=== PATIENT | male | born 1970 | race Hispanic/Latino ===

== ENCOUNTER 2018-12-28 10:42 | Emergency (ER) | payer SELFPAY ==
[2018-12-28] MEDS ORDERED: Sodium Chloride 0.9% 1,000 ML ONE ×2 (11:25→11:46)
[2018-12-28] MEDS ORDERED: Sodium Chloride 0.9% 500 ML ONE (11:46)
[2018-12-28 11:49] LABS: #Eosinphils 0.6 thou/uL (0.0-0.7); #Lymphocytes 1.1 thou/uL (1.20-3.40); #Monocytes 0.4 thou/uL (0.11-0.59); #Neutrophils 1.2 thou/uL (1.40-6.50); %Eosinophils 17.2 % (0.0-10.0); %Lymphocytes 32.5 % (21.0-51.0); %Neutrophils 36.2 % (42.0-75.0); Hemoglobin 13.3 g/dL (14.0-18.0); Mean Corpuscular HGB CONC 32.4 g/dL (32.0-36.0); Mean Corpuscular Hemoglobin 29.7 pg (27.0-31.0); Mean Corpuscular Volume 91.7 fL (78.0-98.0); Mean Platelet Volume 8.7 fL (7.4-10.4); Platelet Count 136 thou/uL (130-400); RBC Distribution Width 14.2 % (11.5-14.5); Red Blood Cell (RBC) Count 4.46 mill/uL (4.70-6.10); White Blood Cell (WBC) Count 3.4 thou/uL (4.8-10.8)
[2018-12-28 12:03] LABS: ALT (SGPT) 37 U/L (8-55); AST (SGOT) 37 U/L (5-34); Albumin 3.8 g/dL (3.5-5.0); Alkaline Phosphatase 108 U/L (40-150); Anion Gap 15 mmol/L (10-20); BUN (Urea Nitrogen) 26 mg/dL (8.9-20.6); Bilirubin, Total 0.4 mg/dL (0.2-1.2); Calc. Creatinine Clearance 0 mL/min (70-130); Calcium 8.5 mg/dL (7.8-10.44); Carbon Dioxide 18 mmol/L (22-29); Chloride 109 mmol/L (98-107); Estimated GFR-MDRD 51; Globulin 3.9 g/dL (2.4-3.5); Glucose 101 mg/dL (70-105); Potassium 4.1 mmol/L (3.5-5.1); Protein, Total 7.7 g/dL (6.0-8.3); Sodium 138 mmol/L (136-145)
[2018-12-28 12:06] LABS: Bilirubin Negative (Negative); Blood, Urine Trace (Negative); Clarity Clear (Clear); Glucose, Urine (Dipstick) Negative (Negative); Leukocyte Negative (Negative); Nitrite Negative (Negative); Protein, Urine (Dipstick) 30 mg/dL (Neg-Trace); Urobilinogen 0.2 mg/dL (0.2-1.0); pH, Urine 5.5 (5.0-9.0)
[2018-12-28 12:22] LABS: RBC/HPF 0-3 HPF (0-3); WBC/HPF None Seen HPF (0-3)
[2018-12-28 12:23] LABS: Bacteria/HPF Rare-Few HPF (None Seen); Other Microscopic Description NO; Squamous Epithelial None Seen HPF (0-3)
[2018-12-28 12:31] LABS: Amphetamine Not Detected (NotDetected); Barbiturates Screen Not Detected (NotDetected); Benzodiazepine Screen Not Detected (NotDetected); Cocaine Metabolite Screen Not Detected (NotDetected); Medtox Control Line Valid? VALID (VALID); Methadone Not Detected (NotDetected); Methamphetamine Not Detected (NotDetected); Opiate Screen Not Detected (NotDetected); Oxycodone Screen Not Detected (NotDetected); Phencyclidine (PCP) Not Detected (NotDetected); THC/Cannabinoid Screen Not Detected (NotDetected); Tricyclic Screen Not Detected (NotDetected)
== END 2018-12-28 13:05 | disposition home or self-care (01) ==
LOC: NAV ERS 10:42
DX: E86.0 Dehydration (principal); N28.9 Disorder of kidney and ureter, unspecified; Z87.891 Personal history of nicotine dependence
CPT/HCPCS: 80053; 80306; 81003; 81015; 83605; 84484; 85025; 93005; J7050

== ENCOUNTER 2019-03-02 13:02 | Emergency (ER) | payer SELFPAY ==
[2019-03-02] MEDS ORDERED: Sodium Chloride 0.9% 1,000 ML ONE (13:27)
[2019-03-02 13:49] LABS: ALT (SGPT) 34 U/L (8-55); AST (SGOT) 39 U/L (5-34); Albumin 3.9 g/dL (3.5-5.0); Alkaline Phosphatase 86 U/L (40-150); Anion Gap 14 mmol/L (10-20); BUN (Urea Nitrogen) 17 mg/dL (8.9-20.6); Bilirubin, Total 0.6 mg/dL (0.2-1.2); Calc. Creatinine Clearance 0 mL/min (70-130); Calcium 8.9 mg/dL (7.8-10.44); Carbon Dioxide 22 mmol/L (22-29); Chloride 104 mmol/L (98-107); Estimated GFR-MDRD 52; Globulin 3.9 g/dL (2.4-3.5); Glucose 152 mg/dL (70-105); Potassium 4.4 mmol/L (3.5-5.1); Protein, Total 7.8 g/dL (6.0-8.3); Sodium 136 mmol/L (136-145)
--- NOTE | 2019-03-02 13:50 | CT ---
CT BRAIN NONCONTRAST: HISTORY: 48-year-old male with dizziness. FINDINGS: There is no midline shift or any other mass effect. There is no evidence of acute intracranial hemor rhage, large cortical infarct, obstructive hydrocephalus, or extraaxial fluid collection. The calvar ium is intact. IMPRESSION: No acute intracranial findings. jn [] POS: [facility]
[2019-03-02 13:56] LABS: #Eosinphils 0.4 thou/uL (0.0-0.7); #Monocytes 0.4 thou/uL (0.11-0.59); #Neutrophils 2.3 thou/uL (1.40-6.50); %Basophils 0.6 % (0.0-1.0); %Eosinophils 11.1 % (0.0-10.0); %Lymphocytes 24.3 % (21.0-51.0); %Monocytes 8.7 % (0.0-10.0); %Neutrophils 55.3 % (42.0-75.0); Hemoglobin 12.5 g/dL (14.0-18.0); Mean Corpuscular HGB CONC 32.1 g/dL (32.0-36.0); Mean Corpuscular Hemoglobin 29.7 pg (27.0-31.0); Mean Corpuscular Volume 92.5 fL (78.0-98.0); Mean Platelet Volume 8.2 fL (7.4-10.4); Platelet Count 174 thou/uL (130-400); RBC Distribution Width 13.1 % (11.5-14.5); Red Blood Cell (RBC) Count 4.19 mill/uL (4.70-6.10); White Blood Cell (WBC) Count 4.1 thou/uL (4.8-10.8)
[2019-03-02 14:10] LABS: Platelet Morphology Comment Appears Adequate; RBC Morphology Normal
== END 2019-03-02 14:58 | disposition home or self-care (01) ==
LOC: NAV ERS 13:02
DX: E86.0 Dehydration (principal); R42 Dizziness and giddiness; N28.9 Disorder of kidney and ureter, unspecified; Z87.891 Personal history of nicotine dependence
CPT/HCPCS: 70450; 80053; 84484; 85025; 93005; 96360; J7050

== ENCOUNTER 2019-03-15 12:37 | Emergency (ER) | payer SELFPAY | END 2019-03-15 13:13 | disposition home or self-care (01) | LOC: NAV ERS 12:37 | DX: M25.562 Pain in left knee (principal); B20 Human immunodeficiency virus [HIV] disease; Z87.891 Personal history of nicotine dependence | CPT/HCPCS: 99281 ==

== ENCOUNTER 2019-07-09 10:33 | Emergency (ER) | payer SELFPAY ==
--- NOTE | 2019-07-09 11:03 | RAD ---
Left thumb 3 views. HISTORY: Left thumb injury COMPARISON: None. FINDINGS: There is a tuft fracture of the distal phalanx. No other abnormalities. IMPRESSION: Tuft fracture.
== END 2019-07-09 11:35 | disposition home or self-care (01) ==
LOC: NAV ERS 10:33
DX: S62.637A Displaced fracture of distal phalanx of left little finger, initial encounter for closed fracture (principal); B20 Human immunodeficiency virus [HIV] disease; M10.9 Gout, unspecified; Z87.891 Personal history of nicotine dependence; Z79.899 Other long term (current) drug therapy; W22.03XA Walked into furniture, initial encounter

== ENCOUNTER 2019-08-20 13:34 | Emergency (ER) | payer SELFPAY ==
--- NOTE | 2019-08-20 14:05 | RAD ---
EXAM: XR Knee Rt 4 View STANDARD PROVIDED CLINICAL HISTORY: Pain FINDINGS: There is no evidence for fracture or other acute osseous abnormality. Alignment appears anatomic. Fatemeh nt spaces appear preserved. Sequela of prior tibial tubercle apophysitis is noted. Postoperative changes noted involving the inferior pole of the patella. IMPRESSION: No evidence for an acute osseous abnormality. If there is persistent clinical concern, conservative m anagement and follow-up imaging advised.
== END 2019-08-20 14:43 | disposition home or self-care (01) ==
LOC: NAV ERS 13:34
DX: S83.421A Sprain of lateral collateral ligament of right knee, initial encounter (principal); M93.961 Osteochondropathy, unspecified, right lower leg; B20 Human immunodeficiency virus [HIV] disease; M10.9 Gout, unspecified; Z79.899 Other long term (current) drug therapy; X58.XXXA Exposure to other specified factors, initial encounter

== ENCOUNTER 2019-10-12 11:23 | Emergency (ER) | payer SELFPAY | END 2019-10-12 11:52 | disposition home or self-care (01) | LOC: NAV ERS 11:23 | DX: M79.671 Pain in right foot (principal); M10.9 Gout, unspecified; B20 Human immunodeficiency virus [HIV] disease; Z79.899 Other long term (current) drug therapy | CPT/HCPCS: 99281 ==

== ENCOUNTER 2019-11-08 16:49 | Emergency (ER) | payer SELFPAY | END 2019-11-08 17:30 | disposition home or self-care (01) | LOC: NAV ERS 16:49 | DX: M25.562 Pain in left knee (principal); B20 Human immunodeficiency virus [HIV] disease; Z87.891 Personal history of nicotine dependence; Z79.899 Other long term (current) drug therapy | CPT/HCPCS: 99283 ==

== ENCOUNTER 2020-02-26 07:12 | Emergency (ER) | payer SELFPAY ==
[2020-02-26 07:56] LABS: Bilirubin Negative (Negative); Blood, Urine Large (Negative); Clarity Clear (Clear); Glucose, Urine (Dipstick) Negative (Negative); Ketone, Urine Negative (Negative); Leukocyte Negative (Negative); Nitrite Negative (Negative); Protein, Urine (Dipstick) > or equal to 300 mg/dL (Neg-Trace); Urobilinogen 0.2 mg/dL (Less than 2)
[2020-02-26 08:04] LABS: Bacteria/HPF Rare-Few HPF (None Seen); Squamous Epithelial None Seen HPF (0-3)
[2020-02-26] MEDS ORDERED: Ketorolac Tromethamine 30 MG/ML VIAL ONE (08:17)
[2020-02-26] MEDS ORDERED: Sodium Chloride 0.9% 1,000 ML ONE (08:17)
[2020-02-26 08:22] LABS: #Basophils 0.1 thou/uL (0.0-0.2); #Eosinphils 0.1 thou/uL (0.0-0.7); #Lymphocytes 1.2 thou/uL (1.20-3.40); #Monocytes 0.8 thou/uL (0.11-0.59); #Neutrophils 10.7 thou/uL (1.40-6.50); %Basophils 0.6 % (0.0-1.0); %Eosinophils 0.7 % (0.0-10.0); %Lymphocytes 9.3 % (21.0-51.0); %Monocytes 6.2 % (0.0-10.0); %Neutrophils 83.1 % (42.0-75.0); Hemoglobin 15.7 g/dL (14.0-18.0); Mean Corpuscular HGB CONC 30.9 g/dL (32.0-36.0); Mean Corpuscular Hemoglobin 29.2 pg (27.0-31.0); Mean Corpuscular Volume 94.3 fL (78.0-98.0); Mean Platelet Volume 7.9 fL (7.4-10.4); Platelet Count 351 thou/uL (130-400); RBC Distribution Width 11.9 % (11.5-14.5); Red Blood Cell (RBC) Count 5.37 mill/uL (4.70-6.10); White Blood Cell (WBC) Count 12.8 thou/uL (4.8-10.8)
[2020-02-26 08:38] LABS: ALT (SGPT) 29 U/L (8-55); AST (SGOT) 20 U/L (5-34); Albumin 4.1 g/dL (3.5-5.0); Alkaline Phosphatase 133 U/L (40-110); Anion Gap 18 mmol/L (10-20); BUN (Urea Nitrogen) 17 mg/dL (8.9-20.6); Bilirubin, Total 0.6 mg/dL (0.2-1.2); Calc. Creatinine Clearance 0 mL/min (70-130); Calcium 9.5 mg/dL (7.8-10.44); Carbon Dioxide 22 mmol/L (22-29); Chloride 101 mmol/L (98-107); Estimated GFR-MDRD 51; Globulin 4.1 g/dL (2.4-3.5); Glucose 145 mg/dL (70-105); Potassium 4.3 mmol/L (3.5-5.1); Protein, Total 8.2 g/dL (6.0-8.3); Sodium 137 mmol/L (136-145)
--- NOTE | 2020-02-26 09:49 | CT ---
CT ABDOMEN AND PELVIS PERFORMED WITHOUT CONTRAST ENHANCEMENT: HISTORY: Left flank pain. History of kidney stones. COMPARISON: None. FINDINGS: The lung bases are clear. The liver, spleen, and pancreas regions appear unremarkable. Gallbladder is mildly distended. There is some motion artifact present, but there may be some gallbladder wall thickening, but no perichole cystic edema change. There is a focus of increased attenuation of the gallbladder neck, potentially a stone. Right and left adrenal glands and right and left kidneys are normal in size. No renal calculi are se en. A retroaortic left renal vein is incidentally noted. No obstruction or evidence for ureteral ca lculi. No significant periaortic or mesenteric adenopathy. CT OF PELVIS PERFORMED WITHOUT CONTRAST ENHANCEMENT: Minimal sigmoid diverticulosis. The bladder is not distended. There are 2 calcifications surrounded by fat at the level of the midline of the dome of the bladder. These are not felt to be within the bladder and it is not felt to represent an expelled stone. It is at the level of the median umbilica l ligament and is probably just related to the vestigial obliterated urachus or so-called median umbi lical ligament. The appendix is normal. IMPRESSION: 1. Somewhat distended gallbladder. Suggestion there may be a small stone in the gallbladder neck an d a suggestion of some wall thickening. Ultrasound would be suggested if indicated. 2. No evidence for renal or ureteral calculi. Other incidental findings as noted above. POS: [facility]
== END 2020-02-26 10:17 | disposition home or self-care (01) ==
LOC: NAV ER/OP 07:12
DX: R10.9 Unspecified abdominal pain (principal); R11.2 Nausea with vomiting, unspecified; B20 Human immunodeficiency virus [HIV] disease; M10.9 Gout, unspecified; Z87.891 Personal history of nicotine dependence
CPT/HCPCS: 74176; 80053; 81003; 81015; 85025; 96361; 96374; J1885; J7050

== ENCOUNTER 2020-09-12 20:29 | Emergency (ER) | payer SELFPAY ==
[2020-09-12] MEDS ORDERED: predniSONE 20 MG TAB ONE (21:01)
== END 2020-09-12 21:30 | disposition home or self-care (01) ==
LOC: NAV ERS 20:29
DX: M77.11 Lateral epicondylitis, right elbow (principal); M77.01 Medial epicondylitis, right elbow; M10.9 Gout, unspecified; Z87.891 Personal history of nicotine dependence; Z79.899 Other long term (current) drug therapy
CPT/HCPCS: 99283; J7512

== ENCOUNTER 2021-05-15 07:52 | Emergency (ER) | payer SELFPAY | END 2021-05-15 08:20 | disposition home or self-care (01) | LOC: NAV ERS 07:52 | DX: R19.7 Diarrhea, unspecified (principal); Z87.891 Personal history of nicotine dependence | CPT/HCPCS: 99283 ==